=== PATIENT | female | born 1955 | race Caucasian/White ===

== ENCOUNTER 2018-05-24 11:21 | Day surgery (SDC) | END 2018-05-24 17:02 | disposition home or self-care (01) ==

== ENCOUNTER 2019-01-18 12:02 | Day surgery (SDC) | payer OTHER ==
[~2019-01-18] VITALS: Ht 152.4 cm; Wt 61.6 kg
[~2019-01-18 12:02] MED LIST: FURO40SO PO; LEVO50TA7 PO; NADO80TA13 PO; SPIR100T4 PO; TRAZ-111 PO
[2019-01-18 13:21] VITALS: Ht 152.4 cm; Wt 61.6 kg
[2019-01-18 14:01] VITALS: BP 144/77; PULSE 73; RESP 18
--- NOTE | 2019-01-18 14:22 | HPN ---
Date/Time of Note Date/Time of Note DATE: 01/18/19 TIME: 14:22 Interval H&P Admission Note Pt. seen H&P reviewed: No system changes RINKU FRY Jan 18, 2019 14:22
--- NOTE | 2019-01-18 14:22 | PREAC ---
Date/Time of Note Date/Time of Note DATE: 01/18/19 TIME: 14:21 Anesthesia Eval and Record Evaluation Time Pre-Procedure Interview DATE: 01/18/19 TIME: 14:21 Age 63 Sex female NPO: 8 hrs Preoperative diagnosis esophageal varices Planned procedure EGD Past Medical History Past Medical History: Includes Cardio: HTN Endo: Hypothyroid Pulm: Smoking Hx, COPD Neuro: Peripheral neuropathy Musculoskeletal: Osteoarthritis Hepatic: Hepatitis, Cirrhosis Heme: Anemia Surgery & Anesthesia Issues No known issue Meds Anticoagulation: No Beta Jennifer within 24 hr: No Reason Beta Jennifer not given: Pt. not on B-Jennifer Reported Medications Levothyroxine Sodium* (Levothyroxine Sodium*) 50 Mcg Tablet, 50 MCG PO BEFORE BREAKFAST, #30 TAB 05/24/18 Furosemide* (Furosemide*) 40 Mg/5 Ml Solution, 40 MG PO DAILY, #150 ML 05/24/18 Trazodone Hcl* (Trazodone Hcl*) 50 Mg Tablet, 25 MG PO QHS, #30 TAB 05/24/18 Spironolactone* (Spironolactone*) 100 Mg Tablet, 100 MG PO DAILY, TAB 05/24/18 Nadolol* (Nadolol) 80 Mg Tablet, 20 MG PO DAILY, TAB 05/24/18 Meds reviewed: Yes Allergies Coded Allergies: No Known Allergy (Unverified , 05/24/14) Allergies Reviewed: Yes Labs/Studies Labs Reviewed: Reviewed by anesthesiologist test: Negative Studies: ECG Pre-procedure Exam Last vitals Vital Signs Date Temp Pulse Resp B/P (MAP) Pulse Ox O2 O2 Flow FiO2 Time Delivery Rate 01/18/19 73 18 144/77 96 Room Air 14:01 (99) Airway: Adequate mouth opening, Adequate thyromental dist Mallampati: Mallampati III Teeth: Normal Lung: Normal Heart: Normal ASA Physical Status ASA physical status: 3 Emergency: None Planned Anesthetic General/MAC: MAC Planned Pain Management Parenteral pain med Pre-operative Attestations Prior to commencing anesthesia and surgery, the patient was re-evaluated, there was verification of: *The patient's identity *The results of appropriate recent lab work and preoperative vital signs *The above evaluation not changing prior to induction *Anesthetic plan, risk benefits, alternative and complications discussed with patient/family; questions answered; patient/family understands, accepts and wishes to proceed. TYRESE NAVARRETE MD Jan 18, 2019 14:22
[2019-01-18] MEDS ORDERED: LIDOCAINE 2% (SDV) 5 ML INJ ONE (14:23)
[2019-01-18] MEDS ORDERED: PROPOFOL 40 ML ONE (14:23)
[2019-01-18 15:03] VITALS: BP 129/71; RESP 20
--- NOTE | 2019-01-18 16:14 | PAC ---
Date/Time of Note Date/Time of Note DATE: 01/18/19 TIME: 16:14 Post-Anesthesia Notes Post-Anesthesia Note Last documented vital signs Vital Signs Date Temp Pulse Resp B/P (MAP) Pulse Ox O2 O2 Flow FiO2 Time Delivery Rate 01/18/19 20 129/71 95 15:03 (90) 01/18/19 73 Room Air 14:01 Activity: WNL Respiratory function: WNL Cardiovascular function: WNL Mental status: Baseline Pain reasonably controlled: Yes Hydration appropriate: Yes Nausea/Vomiting absent: Yes TYRESE NAVARRETE MD Jan 18, 2019 16:14
== END 2019-01-18 15:17 | disposition home or self-care (01) ==
LOC: GIL 12:02
PROVIDERS: ATTEND Internal Medicine Gastroenterology
DX: K44.9 Diaphragmatic hernia without obstruction or gangrene (principal); K21.0 Gastro-esophageal reflux disease with esophagitis; I10 Essential (primary) hypertension; J44.9 Chronic obstructive pulmonary disease, unspecified; Z87.891 Personal history of nicotine dependence
CPT/HCPCS: 43235; Z7610